=== PATIENT | female | born 1930 | race Caucasian/White ===

== ENCOUNTER 2018-12-21 05:53 | Inpatient (IN) | payer MEDICARE ==
[2018-12-20 14:08] VITALS: BMI 31.4
[2018-12-21] MEDS ORDERED: Fentanyl 100 MCG/2 ML VIAL ONE ×2 (06:08→07:46)
[2018-12-21] MEDS ORDERED: Lidocaine 1% (PF) 30 ML VIAL ONE (06:08)
[2018-12-21] MEDS ORDERED: Midazolam HCl 2 mg/2 ml Vial ONE (06:08)
[2018-12-21] MEDS ORDERED: Ropivacaine 0.2% HCl/PF 20 ML ONE (06:08)
[2018-12-21] MEDS ORDERED: Ropivacaine 0.2% 550 ML 550 ML NERVE BLCK SCH (06:26)
[2018-12-21] MEDS ORDERED: traMADol HCl 50 MG TAB PO PRN ×2 (06:26)
[2018-12-21] MEDS ORDERED: Promethazine HCl 25 MG/ML VIAL IM PRN ×2 (06:26→09:34)
[2018-12-21] MEDS ORDERED: Zolpidem Tartrate 5 MG TAB PO PRN (06:26)
[2018-12-21] MEDS ORDERED: Ondansetron PF 4 MG/2 ML Vial IVP PRN (06:26)
[2018-12-21] MEDS ORDERED: Fentanyl 100 MCG/2 ML VIAL IV PRN (06:27)
[2018-12-21] MEDS ORDERED: Sodium Chloride 0.9% 100 ML ONE (06:29)
[2018-12-21] MEDS ORDERED: Tranexamic Acid 1,000 MG/10 ML VIAL ONE (06:29)
[2018-12-21 06:39] LABS: #Eosinphils 0.1 thou/uL (0.0-0.7); #Lymphocytes 1.5 thou/uL (1.20-3.40); #Monocytes 0.5 thou/uL (0.11-0.59); #Neutrophils 3.5 thou/uL (1.40-6.50); %Basophils 0.2 % (0.0-1.0); %Eosinophils 0.9 % (0.0-10.0); %Lymphocytes 26.5 % (21.0-51.0); %Neutrophils 63.4 % (42.0-75.0); Hemoglobin 12.4 g/dL (12.0-16.0); Platelet Count 261 thou/uL (130-400); RBC Distribution Width 12.9 % (11.5-14.5); Red Blood Cell (RBC) Count 3.89 mill/uL (4.20-5.40); White Blood Cell (WBC) Count 5.6 thou/uL (4.8-10.8)
[2018-12-21 07:02] LABS: Anion Gap 14 mmol/L (10-20); BUN (Urea Nitrogen) 12 mg/dL (9.8-20.1); Calc. Creatinine Clearance 75 mL/min (70-130); Calcium 10.2 mg/dL (7.8-10.44); Carbon Dioxide 26 mmol/L (23-31); Chloride 106 mmol/L (98-107); Estimated GFR-MDRD 88; Glucose 92 mg/dL (83-110); Sodium 142 mmol/L (136-145)
--- NOTE | 2018-12-21 07:26 | RAD ---
CHEST 2 VIEWS: Date: 12/21/18 HISTORY: Preoperative evaluation. COMPARISON: 09/29/17. FINDINGS: There is cardiomegaly. Moderate size hiatal hernia. Some metal opacity overlies the right suprahilar region. No confluent pneumonia, overt edema, or pleural effusion. IMPRESSION: Minimal cardiomegaly. No pneumonia or acute edema. Moderate size hiatal hernia. Stable chest. POS: [facility]
[2018-12-21 09:25] LABS: INR-International Normal Ratio 1.1; PTT 38.5 SEC (22.9-36.1); Prothrombin Time 14.5 SEC (12.0-14.7)
[2018-12-21] MEDS ORDERED: Promethazine HCl 25 MG/ML VIAL SLOW IVP PRN (09:34)
[2018-12-21] MEDS ORDERED: PACU-Morphine 4MG/ML VIAL SLOW IVP PRN (09:34)
[2018-12-21] MEDS ORDERED: Ropivacaine 0.2% HCl/PF (40 MG/20 ML VIAL) ONE (09:36)
[2018-12-21] MEDS ORDERED: Ropivacaine 0.5% HCl/PF (150 MG/30 ML VIAL) ONE (09:36)
[2018-12-21] MEDS ORDERED: Bisacodyl 10 MG SUPP PR PRN (09:52)
[2018-12-21] MEDS ORDERED: diphenhydrAMINE 50 MG CAP PO PRN (09:52)
[2018-12-21] MEDS ORDERED: Milk Of Magnesia 30 ML UDCUP PO PRN (09:52)
[2018-12-21] MEDS ORDERED: Acetaminophen 325 MG TAB PO PRN (09:52)
[2018-12-21] MEDS ORDERED: Dexamethasone 20 MG/5 ML VIAL ONE (10:16)
[2018-12-21] MEDS ORDERED: Rocuronium Bromide 10 MG/ML (10ML VIAL) ONE (10:16)
[2018-12-21] MEDS ORDERED: Glycopyrrolate 0.2 MG/ML 5 ML SYRINGE ONE (10:16)
[2018-12-21] MEDS ORDERED: Labetalol HCl 100 MG/20 ML VIAL ONE (10:16)
[2018-12-21] MEDS ORDERED: PROPOFOL 200 MG/20 ML VIAL ONE (10:16)
[2018-12-21] MEDS ORDERED: Lidocaine 1% PF 5 ML VIAL ONE (10:16)
[2018-12-21] MEDS ORDERED: Ondansetron PF 4 MG/2 ML Vial ONE (10:16)
[2018-12-21] MEDS ORDERED: ePHEDrine 50 MG/ML VIAL ONE (10:16)
[2018-12-21] MEDS ORDERED: Famotidine 20 MG TAB PO SCH (10:30)
--- NOTE | 2018-12-21 10:34 | RAD ---
EXAM: 2 views of the right shoulder HISTORY: Shoulder pain COMPARISON: None FINDINGS: The patient is status post right shoulder arthroplasty without perihardware lucency or frac ture. Overlying skin luis manuel are seen. Atelectasis is seen in the right lung. IMPRESSION: Status post right shoulder arthroplasty without evidence of complication.
--- NOTE | 2018-12-21 13:53 | OP ---
DATE OF PROCEDURE: 12/21/2018 PREOPERATIVE DIAGNOSIS: Right irreparable rotator cuff tear, supraspinatus, infraspinatus, subscapularis, biceps tendinopathy with pseudoparalysis POSTOPERATIVE DIAGNOSIS: Right irreparable rotator cuff tear, supraspinatus, infraspinatus, subscapularis, biceps tendinopathy with pseudoparalysis PROCEDURES PERFORMED: 1. Right reverse total shoulder arthroplasty. 2. Biceps tenodesis. HEALTH PSYCHOLOGIST: Christy Jordan PA-C ANESTHESIOLOGIST: Dk Lino MD ANESTHESIA: The patient received a general endotracheal intubation and an interscalene block. ESTIMATED BLOOD LOSS: 200 mL. TOURNIQUET TIME: None. IMPLANTS: A Tornier 25 mm baseplate, a 36 x 25 mm Glenosphere, a center tray, a flex 3A stem, and a 36 x 6 mm poly, two locking and two nonlocking screws. ANTIBIOTICS: The patient received Ancef 2 g, vancomycin 1 g, TXA 1 g. COMPLICATIONS: None. HISTORY OF PRESENT ILLNESS: Ms. Peralta is a pleasant 88-year-old female, who presents with right shoulder pain. The patient has been preoperatively cleared, discussed rotator cuff arthropathy with a significant rotator cuff repairs. The patient understood risks and benefits of right reverse shoulder arthroplasty with biceps tenodesis include pain, scar, bleeding, infection, damage to vital structures, decreased range of motion and strength, nonunion fracture above or below, need for further surgeries, failure of procedure, implant, and loss of life or limb. The patient understood the risks and benefits of the procedure and elected to proceed. DESCRIPTION OF PROCEDURE: Time-out was performed designating the patient's right upper extremity as the operative site based on site, consents, and marking. After time-out procedure note, deltopectoral incision was made down through the skin, deltopectoral interval, found that the vein was stretched and partially torn, so it was cauterized, but kept throughout intact. We kept it intact in situ. We then tied off the cephalic vein. We then came down, found the conjoined tendon, came underneath the shoulder. We found that biceps went up to the groove, tried a small little wedge osteotomy, took down the tendon. We then exposed the humerus. We placed Homans in position. We cut it at type A angle, which was 135, removed the bone, broached at 20 degrees of rotation down to ensure that we were in line with the arm in retroversion. We placed a size 2, put a hard cap in, we exposed the glenoid. We then did a 360 degree release. After 360 degree release, we looked at the baseplate, which fit in the inferior aspect, matched it up. We then placed our center drill guide and we drilled. We placed our anterior and posterior screws, superior and inferior screws. We had overall good alignment of the patient's implant and good stability after completion of our anterior and posterior, and superior and inferior locking screws. We then placed our Glenosphere into position. We then moved back to the humerus. We broached down and ultimately placed a 3, there was some tightness, I took over more bone superiorly with our reamer. We then reduced. The patient had good internal and external rotation and overhead elevation. No signs of impingement superior and inferior to about 130 degrees. No inferior impingement to speak of. We washed. We had placed a #5 Ethibond around to repair and repaired the subscapularis down. We tenodesed the biceps to the remnant subscapularis as well as remnant cuff posteriorly and soft tissue with #2 Ethibond. We then washed, closed the deltopectoral fascia with #1 Vicryl. We closed the subcu running stitch with 2-0 Vicryl. We closed with subcu running with 2-0, then we did luis manuel. The patient will be admitted. The patient lives at home alone and will need postoperative care. She will likely need to be in the hospital until she can be transferred to alf. Job ID: [id number] [facility]
[2018-12-21] MEDS: Lactated Ringer's 1,000 ML IV SCH ×2 (14:00→23:17)
[2018-12-21] MEDS: CEFAZOLIN 2 GM in Premix Bag 1 BAG IVPB SCH ×2 (15:55→23:17)
[2018-12-21] MEDS ORDERED: Vancomycin HCl 1 GM in Premix Bag 1 BAG IVPB SCH (20:00)
[2018-12-21] MEDS: Losartan 25 MG TAB PO SCH (20:47)
[2018-12-21] MEDS: Famotidine 20 MG TAB PO SCH (20:48)
[2018-12-21] MEDS: Docusate 100 MG CAP PO SCH (20:48)
[2018-12-21] MEDS: Atorvastatin Calcium 20 MG TAB PO SCH (20:48)
[2018-12-22] MEDS: HYDROcodone/Acetaminophen 5/325 mg Tablet PO PRN ×4 (02:04→21:41)
[2018-12-22] MEDS: Lactated Ringer's 1,000 ML IV SCH ×2 (03:02→17:53)
[2018-12-22] MEDS: Atenolol 25 MG TAB PO SCH (08:47)
[2018-12-22] MEDS: Citalopram 10 MG TAB PO SCH (08:48)
[2018-12-22] MEDS: Losartan 25 MG TAB PO SCH ×2 (08:48→21:40)
[2018-12-22] MEDS: Loratadine 10 MG TAB PO SCH (08:49)
[2018-12-22] MEDS: Amlodipine 5 MG TAB PO SCH (08:49)
[2018-12-22] MEDS: Furosemide 20 MG TAB PO SCH (08:49)
[2018-12-22] MEDS: Docusate 100 MG CAP PO SCH ×2 (08:49→21:40)
[2018-12-22] MEDS: Famotidine 20 MG TAB PO SCH ×2 (08:49→21:40)
[2018-12-22] MEDS: Pantoprazole 40 MG GRANULES PACKET PO SCH (08:50)
[2018-12-22] MEDS: Calcium Carbonate + Vit D 250 MG TAB PO SCH (08:50)
[2018-12-22] MEDS: Potassium Chloride 10 MEQ TAB PO SCH (08:50)
[2018-12-22] MEDS ORDERED: cloNIDine 0.1 MG TAB PO PRN (17:36)
[2018-12-22] MEDS: Atorvastatin Calcium 20 MG TAB PO SCH (21:40)
[2018-12-23] MEDS: Lactated Ringer's 1,000 ML IV SCH ×2 (08:27→22:56)
[2018-12-23] MEDS: Amlodipine 5 MG TAB PO SCH (08:27)
[2018-12-23] MEDS: Atenolol 25 MG TAB PO SCH (08:28)
[2018-12-23] MEDS: Potassium Chloride 10 MEQ TAB PO SCH (08:28)
[2018-12-23] MEDS: Famotidine 20 MG TAB PO SCH ×2 (08:29→19:56)
[2018-12-23] MEDS: Furosemide 20 MG TAB PO SCH (08:29)
[2018-12-23] MEDS: Losartan 25 MG TAB PO SCH ×2 (08:29→19:56)
[2018-12-23] MEDS: Docusate 100 MG CAP PO SCH ×2 (08:30→19:56)
[2018-12-23] MEDS: Citalopram 10 MG TAB PO SCH (08:30)
[2018-12-23] MEDS: Loratadine 10 MG TAB PO SCH (08:30)
[2018-12-23] MEDS: Calcium Carbonate + Vit D 250 MG TAB PO SCH (08:30)
[2018-12-23] MEDS: Pantoprazole 40 MG GRANULES PACKET PO SCH (08:30)
[2018-12-23] MEDS: HYDROcodone/Acetaminophen 5/325 mg Tablet PO PRN (14:26)
--- NOTE | 2018-12-23 17:07 | PDOC.PN ---
- Subjective Encounter Start Date: 12/23/18 Encounter Start Time: 15:00 Subjective: pt up in bed complains of pain to her right shoulder - Objective Vital Signs & Weight: Vital Signs (12 hours) Temp Pulse Resp BP BP Pulse Ox Pulse Ox 12/23/18 16:12 98.9 F 70 20 148/83 H 96 12/23/18 15:28 65 16 12/23/18 11:02 98.3 F 65 20 152/93 H 97 12/23/18 09:41 94 L 12/23/18 08:28 66 160/90 H 12/23/18 08:27 66 12/23/18 08:26 99 12/23/18 07:57 98.3 F 66 20 160/90 H 99 Pulse Ox Pulse Ox 12/23/18 16:12 12/23/18 15:28 12/23/18 11:02 12/23/18 09:41 77 L 93 L 12/23/18 08:28 12/23/18 08:27 12/23/18 08:26 12/23/18 07:57 Weight Weight 172 lb I&O: 12/22/18 12/23/18 12/24/18 06:59 06:59 06:59 Intake Total 994 213 0917 Balance 689 208 3544 Result Diagrams: 12/21/18 06:27 12/21/18 06:27 Phys Exam - Physical Examination Neck: no nodes, no JVD, supple, full ROM Respiratory: wheezing present Cardiovascular: RRR, no significant murmur, no rub, gallop, irregular Gastrointestinal: soft, non-tender, no distention, positive bowel sounds Musculoskeletal: no edema, pulses present, edema present Dx/Plan (1) Hypertension Code(s): I10 - ESSENTIAL (PRIMARY) HYPERTENSION Status: Acute (2) SOB (shortness of breath) Code(s): R06.02 - SHORTNESS OF BREATH Status: Acute - Plan pt was on bp meds but was taken off by her pcp -: since her blood pressure has been normal. -: I believe her elevated bp is due to her pain and current situation -: Her pervious meds have been restarted, will monitor -: will start pt on some duoneb, she may need iv lasix * . Review of Systems - Review of Systems Respiratory: Shortness of Breath Cardiovascular: negative: chest pain, palpitations, orthopnea, paroxysmal nocturnal dyspnea, edema, light headedness, other Gastrointestinal: negative: Nausea, Vomiting, Abdominal Pain, Diarrhea, Constipation, Melena, Hematochezia, Other Genitourinary: negative: Dysuria, Frequency, Incontinence, Hematuria, Retention , Other - Medications/Allergies Allergies/Adverse Reactions: Allergies Allergy/AdvReac Type Severity Reaction Status Date / Time Sulfa (Sulfonamide Allergy Unknown Verified 12/20/18 14:02 Antibiotics) Medications: Current Medications Acetaminophen (Tylenol) 650 mg PO Q4H PRN PRN Reason: YADAV/T > 101.5F/Mild Pain (1-3) Hydrocodone Bitart/Acetaminophen ([place] 5/325) 1 tab PO Q4H PRN PRN Reason: Mild Pain (1-3) Last Admin: 12/23/18 14:26 Dose: 1 tab Hydrocodone Bitart/Acetaminophen ([place] 5/325) 2 tab PO Q4H PRN PRN Reason: For Moderate Pain 4-6 Last Admin: 12/22/18 13:24 Dose: 2 tab Albuterol/Ipratropium (Duoneb) 3 ml NEB NOW [facility] Stop: 12/23/18 17:30 Last Admin: 12/23/18 15:28 Dose: 3 ml Albuterol/Ipratropium (Duoneb) 3 ml NEB Q6H PRN PRN Reason: SOB &/or Wheezing Amlodipine Besylate (Norvasc) 2.5 mg PO DAILY [facility] Last Admin: 12/23/18 08:27 Dose: 2.5 mg Atenolol (Tenormin) 25 mg PO DAILY [facility] Last Admin: 12/23/18 08:28 Dose: 25 mg Atorvastatin Calcium (Lipitor) 20 mg PO HS [facility] Last Admin: 12/22/18 21:40 Dose: 20 mg Bisacodyl (Dulcolax) 10 mg [place] Q6H PRN PRN Reason: Constipation Calcium/Vitamin D (Oscal + Vit D) 250 mg PO DAILY [facility] Last Admin: 12/23/18 08:30 Dose: 250 mg Cholecalciferol (Vitamin D3) 2,000 units PO DAILY [facility] Last Admin: 12/23/18 08:29 Dose: 2,000 units Citalopram Hydrobromide (Celexa) 10 mg PO DAILY [facility] Last Admin: 12/23/18 08:30 Dose: 10 mg Clonidine (Catapres) 0.1 mg PO Q4H PRN PRN Reason: SBP Greater Than 180 Diphenhydramine HCl (Benadryl) 50 mg PO Q4H PRN PRN Reason: Itching Docusate Sodium (Colace) 100 mg PO BID [facility] Last Admin: 12/23/18 08:30 Dose: 100 mg Famotidine (Pepcid) 20 mg PO BID [facility] Last Admin: 12/23/18 08:29 Dose: 20 mg Fentanyl (Sublimaze) 50 mcg IV Q1H PRN PRN Reason: Breakthrough Pain Furosemide (Lasix) 20 mg PO DAILY [facility] Last Admin: 12/23/18 08:29 Dose: 20 mg Ropivacaine (Ropivacaine 0.2% 550 Ml) 550 mls @ 6 mls/hr NERVE BLCK INF [facility] Lactated Ringer's (Lactated Ringer's) 1,000 mls @ 65 mls/hr IV .[id number] [facility] Last Admin: 12/23/18 08:27 Dose: Not Given Loratadine (Claritin) 10 mg PO DAILY [facility] Last Admin: 12/23/18 08:30 Dose: 10 mg Losartan Potassium (Cozaar) 50 mg PO BID [facility] Last Admin: 12/23/18 08:29 Dose: 50 mg Magnesium Hydroxide (Milk Of Magnesium) 30 ml PO DAILYPRN PRN PRN Reason: Constipation Ondansetron HCl (Zofran) 4 mg IVP Q6H PRN PRN Reason: Nausea/Vomiting Pantoprazole Sodium (Protonix) 40 mg PO DAILY [facility] Last Admin: 12/23/18 08:30 Dose: 40 mg Potassium Chloride (Klor-Con 10) 10 meq PO DAILY [facility] Last Admin: 12/23/18 08:28 Dose: 10 meq Promethazine HCl (Phenergan) 12.5 mg IM Q4H PRN PRN Reason: Nausea Sodium Chloride (Flush - Normal Saline) 10 ml IVF PRN PRN PRN Reason: Saline Flush Tramadol HCl (Ultram) 100 mg PO Q6H PRN PRN Reason: Moderate Pain 4-6 Zolpidem Tartrate (Ambien) 5 mg PO HSPRN PRN PRN Reason: Insomnia Last Admin: 12/21/18 20:52 Dose: 5 mg
[2018-12-23] MEDS: Atorvastatin Calcium 20 MG TAB PO SCH (19:56)
[2018-12-24] MEDS: HYDROcodone/Acetaminophen 5/325 mg Tablet PO PRN ×3 (03:33→22:22)
[2018-12-24] MEDS: Losartan 25 MG TAB PO SCH (09:10)
[2018-12-24] MEDS: Loratadine 10 MG TAB PO SCH (09:11)
[2018-12-24] MEDS: Potassium Chloride 10 MEQ TAB PO SCH (09:11)
[2018-12-24] MEDS: Famotidine 20 MG TAB PO SCH ×2 (09:11→20:31)
[2018-12-24] MEDS: Atenolol 25 MG TAB PO SCH (09:11)
[2018-12-24] MEDS: Calcium Carbonate + Vit D 250 MG TAB PO SCH (09:11)
[2018-12-24] MEDS: Docusate 100 MG CAP PO SCH ×2 (09:11→20:31)
[2018-12-24] MEDS: Pantoprazole 40 MG GRANULES PACKET PO SCH (09:12)
[2018-12-24] MEDS: Furosemide 20 MG TAB PO SCH (09:12)
[2018-12-24] MEDS: Citalopram 10 MG TAB PO SCH (09:12)
[2018-12-24] MEDS: Amlodipine 5 MG TAB PO SCH (09:12)
[2018-12-24] MEDS: Lactated Ringer's 1,000 ML IV SCH (09:15)
--- NOTE | 2018-12-24 12:41 | PDOC.PN ---
- Subjective Encounter Start Date: 12/24/18 Encounter Start Time: 11:15 Subjective: pt up in bed feels better today - Objective Vital Signs & Weight: Vital Signs (12 hours) Temp Pulse Resp BP BP BP Pulse Ox 12/24/18 11:16 97.6 F 77 20 133/77 96 12/24/18 10:10 85 22 H 97 12/24/18 09:12 86 159/80 H 12/24/18 09:11 86 159/80 H 12/24/18 08:23 94 L 12/24/18 08:22 98.3 F 86 20 159/80 H 94 L 12/24/18 04:00 98.5 F 70 18 144/83 H 98 Weight Weight 172 lb I&O: 12/23/18 12/24/18 12/25/18 06:59 06:59 06:59 Intake Total 500 1550 250 Balance 500 1550 250 Result Diagrams: 12/21/18 06:27 12/21/18 06:27 Phys Exam - Physical Examination Neck: no nodes, no JVD, supple, full ROM mild crackles to bases Cardiovascular: RRR, no significant murmur, no rub, gallop, irregular Dx/Plan (1) Hypertension Code(s): I10 - ESSENTIAL (PRIMARY) HYPERTENSION Status: Acute (2) SOB (shortness of breath) Code(s): R06.02 - SHORTNESS OF BREATH Status: Acute - Plan will give iv lasix today -: try to wean off oxygen -: bp controlled will make CHAPO once a day * . Review of Systems - Review of Systems ENT: negative: Ear Pain, Ear Discharge, Nose Pain, Nose Discharge, Nose Congestion, Mouth Pain, Mouth Swelling, Throat Pain, Throat Swelling, Other Respiratory: negative: Cough, Dry, Shortness of Breath, Hemoptysis, SOB with Excertion, Pleuritic Pain, Sputum, Wheezing Cardiovascular: negative: chest pain, palpitations, orthopnea, paroxysmal nocturnal dyspnea, edema, light headedness, other - Medications/Allergies Allergies/Adverse Reactions: Allergies Allergy/AdvReac Type Severity Reaction Status Date / Time Sulfa (Sulfonamide Allergy Unknown Verified 12/20/18 14:02 Antibiotics) Medications: Current Medications Acetaminophen (Tylenol) 650 mg PO Q4H PRN PRN Reason: YADAV/T > 101.5F/Mild Pain (1-3) Hydrocodone Bitart/Acetaminophen ([place] 5/325) 1 tab PO Q4H PRN PRN Reason: Mild Pain (1-3) Last Admin: 12/24/18 03:33 Dose: 1 tab Hydrocodone Bitart/Acetaminophen ([place] 5/325) 2 tab PO Q4H PRN PRN Reason: For Moderate Pain 4-6 Last Admin: 12/22/18 13:24 Dose: 2 tab Albuterol/Ipratropium (Duoneb) 3 ml NEB Q6H PRN PRN Reason: SOB &/or Wheezing Last Admin: 12/24/18 10:10 Dose: 3 ml Amlodipine Besylate (Norvasc) 2.5 mg PO DAILY [facility] Last Admin: 12/24/18 09:12 Dose: 2.5 mg Atenolol (Tenormin) 25 mg PO DAILY [facility] Last Admin: 12/24/18 09:11 Dose: 25 mg Atorvastatin Calcium (Lipitor) 20 mg PO HS [facility] Last Admin: 12/23/18 19:56 Dose: 20 mg Bisacodyl (Dulcolax) 10 mg [place] Q6H PRN PRN Reason: Constipation Calcium/Vitamin D (Oscal + Vit D) 250 mg PO DAILY [facility] Last Admin: 12/24/18 09:11 Dose: 250 mg Cholecalciferol (Vitamin D3) 2,000 units PO DAILY [facility] Last Admin: 12/24/18 09:11 Dose: 2,000 units Citalopram Hydrobromide (Celexa) 10 mg PO DAILY [facility] Last Admin: 12/24/18 09:12 Dose: 10 mg Clonidine (Catapres) 0.1 mg PO Q4H PRN PRN Reason: SBP Greater Than 180 Diphenhydramine HCl (Benadryl) 50 mg PO Q4H PRN PRN Reason: Itching Docusate Sodium (Colace) 100 mg PO BID [facility] Last Admin: 12/24/18 09:11 Dose: 100 mg Famotidine (Pepcid) 20 mg PO BID [facility] Last Admin: 12/24/18 09:11 Dose: 20 mg Fentanyl (Sublimaze) 50 mcg IV Q1H PRN PRN Reason: Breakthrough Pain Furosemide (Lasix) 20 mg PO DAILY [facility] Last Admin: 12/24/18 09:12 Dose: 20 mg Furosemide (Lasix) 40 mg SLOW IVP [facility] Ropivacaine (Ropivacaine 0.2% 550 Ml) 550 mls @ 6 mls/hr NERVE BLCK INF [facility] Loratadine (Claritin) 10 mg PO DAILY [facility] Last Admin: 12/24/18 09:11 Dose: 10 mg Losartan Potassium (Cozaar) 50 mg PO DAILY [facility] Magnesium Hydroxide (Milk Of Magnesium) 30 ml PO DAILYPRN PRN PRN Reason: Constipation Ondansetron HCl (Zofran) 4 mg IVP Q6H PRN PRN Reason: Nausea/Vomiting Pantoprazole Sodium (Protonix) 40 mg PO DAILY [facility] Last Admin: 12/24/18 09:12 Dose: 40 mg Potassium Chloride (Klor-Con 10) 10 meq PO DAILY [facility] Last Admin: 12/24/18 09:11 Dose: 10 meq Promethazine HCl (Phenergan) 12.5 mg IM Q4H PRN PRN Reason: Nausea Sodium Chloride (Flush - Normal Saline) 10 ml IVF PRN PRN PRN Reason: Saline Flush Tramadol HCl (Ultram) 100 mg PO Q6H PRN PRN Reason: Moderate Pain 4-6 Zolpidem Tartrate (Ambien) 5 mg PO HSPRN PRN PRN Reason: Insomnia Last Admin: 12/21/18 20:52 Dose: 5 mg
[2018-12-24] MEDS ORDERED: Furosemide 40 MG/4 ML VIAL SLOW IVP SCH (16:00)
[2018-12-24] MEDS: Atorvastatin Calcium 20 MG TAB PO SCH (20:30)
[2018-12-25] MEDS: Furosemide 20 MG TAB PO SCH (08:27)
[2018-12-25] MEDS: Docusate 100 MG CAP PO SCH (08:27)
[2018-12-25] MEDS: Potassium Chloride 10 MEQ TAB PO SCH (08:27)
[2018-12-25] MEDS: Loratadine 10 MG TAB PO SCH (08:27)
[2018-12-25] MEDS: Citalopram 10 MG TAB PO SCH (08:28)
[2018-12-25] MEDS: Famotidine 20 MG TAB PO SCH (08:28)
[2018-12-25] MEDS: Atenolol 25 MG TAB PO SCH (08:29)
[2018-12-25] MEDS: Amlodipine 5 MG TAB PO SCH (08:30)
[2018-12-25] MEDS: Calcium Carbonate + Vit D 250 MG TAB PO SCH (08:36)
[2018-12-25] MEDS: Pantoprazole 40 MG GRANULES PACKET PO SCH (08:37)
[2018-12-25] MEDS ORDERED: Losartan 25 MG TAB PO SCH (09:00)
[2018-12-25 10:48] VITALS: BP 151/84; TEMP 98.6
--- NOTE | 2018-12-25 12:07 | PDOC.PN ---
- Subjective Encounter Start Date: 12/25/18 Encounter Start Time: 10:30 Subjective: pt up in bed no complains -: per nursing her oxygen sat dropped down to the 70's while she was -: sleeping. - Objective Vital Signs & Weight: Vital Signs (12 hours) Temp Pulse Resp BP BP BP Pulse Ox 12/25/18 10:46 98.6 F 77 16 151/84 H 92 L 12/25/18 08:30 79 134/87 12/25/18 08:29 79 134/87 12/25/18 08:25 96 12/25/18 07:31 98.0 F 80 16 134/87 96 12/25/18 03:58 98.2 F 74 16 120/83 95 Weight Weight 172 lb I&O: 12/24/18 12/25/18 12/26/18 06:59 06:59 06:59 Intake Total 1550 1850 Balance 1550 1850 Result Diagrams: 12/21/18 06:27 12/21/18 06:27 Phys Exam - Physical Examination Neck: no nodes, no JVD, supple, full ROM Respiratory: clear to auscultation bilateral Cardiovascular: RRR, no significant murmur, no rub, gallop, irregular Gastrointestinal: soft, non-tender, no distention, positive bowel sounds Musculoskeletal: no edema, pulses present, edema present Dx/Plan (1) Hypertension Code(s): I10 - ESSENTIAL (PRIMARY) HYPERTENSION Status: Acute (2) SOB (shortness of breath) Code(s): R06.02 - SHORTNESS OF BREATH Status: Acute - Plan pt did well with one dose of iv lasix will repeat it. -: she had pft's in 2012 which were normal. She tells me she follows -: up with Dr conklin. will get her recent echo. She also tells me that her sob -: has been going on for the past month. Normally she will walk for 5-10min -: and rest for another 10min. She did not tell her primary care about this. * . she should be ok for discharge to rehab. i will give her another dose of lasix iv and will increase her oral lasix dose. Tried to wean her off the oxygen and she dropped to 88%. Review of Systems - Review of Systems Respiratory: negative: Cough, Dry, Shortness of Breath, Hemoptysis, SOB with Excertion, Pleuritic Pain, Sputum, Wheezing Cardiovascular: negative: chest pain, palpitations, orthopnea, paroxysmal nocturnal dyspnea, edema, light headedness, other Gastrointestinal: negative: Nausea, Vomiting, Abdominal Pain, Diarrhea, Constipation, Melena, Hematochezia, Other - Medications/Allergies Allergies/Adverse Reactions: Allergies Allergy/AdvReac Type Severity Reaction Status Date / Time Sulfa (Sulfonamide Allergy Unknown Verified 12/20/18 14:02 Antibiotics) Medications: Current Medications Acetaminophen (Tylenol) 650 mg PO Q4H PRN PRN Reason: YADAV/T > 101.5F/Mild Pain (1-3) Hydrocodone Bitart/Acetaminophen ([place] 5/325) 1 tab PO Q4H PRN PRN Reason: Mild Pain (1-3) Last Admin: 12/24/18 03:33 Dose: 1 tab Hydrocodone Bitart/Acetaminophen ([place] 5/325) 2 tab PO Q4H PRN PRN Reason: For Moderate Pain 4-6 Last Admin: 12/24/18 22:22 Dose: 2 tab Albuterol/Ipratropium (Duoneb) 3 ml NEB Q6H PRN PRN Reason: SOB &/or Wheezing Last Admin: 12/24/18 10:10 Dose: 3 ml Amlodipine Besylate (Norvasc) 2.5 mg PO DAILY [facility] Last Admin: 12/25/18 08:30 Dose: 2.5 mg Atenolol (Tenormin) 25 mg PO DAILY [facility] Last Admin: 12/25/18 08:29 Dose: 25 mg Atorvastatin Calcium (Lipitor) 20 mg PO HS [facility] Last Admin: 12/24/18 20:30 Dose: 20 mg Bisacodyl (Dulcolax) 10 mg [place] Q6H PRN PRN Reason: Constipation Calcium/Vitamin D (Oscal + Vit D) 250 mg PO DAILY [facility] Last Admin: 12/25/18 08:36 Dose: 250 mg Cholecalciferol (Vitamin D3) 2,000 units PO DAILY [facility] Last Admin: 12/25/18 08:26 Dose: 2,000 units Citalopram Hydrobromide (Celexa) 10 mg PO DAILY [facility] Last Admin: 12/25/18 08:28 Dose: 10 mg Clonidine (Catapres) 0.1 mg PO Q4H PRN PRN Reason: SBP Greater Than 180 Diphenhydramine HCl (Benadryl) 50 mg PO Q4H PRN PRN Reason: Itching Docusate Sodium (Colace) 100 mg PO BID [facility] Last Admin: 12/25/18 08:27 Dose: 100 mg Famotidine (Pepcid) 20 mg PO BID [facility] Last Admin: 12/25/18 08:28 Dose: 20 mg Fentanyl (Sublimaze) 50 mcg IV Q1H PRN PRN Reason: Breakthrough Pain Furosemide (Lasix) 20 mg PO DAILY [facility] Last Admin: 12/25/18 08:27 Dose: 20 mg Furosemide (Lasix) 40 mg SLOW IVP NOW [facility] Stop: 12/25/18 14:30 Ropivacaine (Ropivacaine 0.2% 550 Ml) 550 mls @ 6 mls/hr NERVE BLCK INF [facility] Loratadine (Claritin) 10 mg PO DAILY [facility] Last Admin: 12/25/18 08:27 Dose: 10 mg Losartan Potassium (Cozaar) 50 mg PO DAILY [facility] Last Admin: 12/25/18 08:29 Dose: 50 mg Magnesium Hydroxide (Milk Of Magnesium) 30 ml PO DAILYPRN PRN PRN Reason: Constipation Ondansetron HCl (Zofran) 4 mg IVP Q6H PRN PRN Reason: Nausea/Vomiting Pantoprazole Sodium (Protonix) 40 mg PO DAILY [facility] Last Admin: 12/25/18 08:37 Dose: 40 mg Potassium Chloride (Klor-Con 10) 10 meq PO DAILY [facility] Last Admin: 12/25/18 08:27 Dose: 10 meq Promethazine HCl (Phenergan) 12.5 mg IM Q4H PRN PRN Reason: Nausea Sodium Chloride (Flush - Normal Saline) 10 ml IVF PRN PRN PRN Reason: Saline Flush Tramadol HCl (Ultram) 100 mg PO Q6H PRN PRN Reason: Moderate Pain 4-6 Zolpidem Tartrate (Ambien) 5 mg PO HSPRN PRN PRN Reason: Insomnia Last Admin: 12/21/18 20:52 Dose: 5 mg
[2018-12-25] MEDS ORDERED: Furosemide 40 MG/4 ML VIAL SLOW IVP SCH (12:30)
== END 2018-12-25 14:35 | DRG 483 ==
LOC: SURG A 05:53 → SJJU 12:29
PROVIDERS: ADMIT Orthopaedic Surgery; ATTEND Orthopaedic Surgery
PROC: 0RRJ00Z Replacement of Right Shoulder Joint with Reverse Ball and Socket Synthetic Substitute, Open Approach (ICD-10-PCS; principal; 2018-12-21)
DX: M75.101 Unspecified rotator cuff tear or rupture of right shoulder, not specified as traumatic (principal); I10 Essential (primary) hypertension; Z96.652 Presence of left artificial knee joint; Z88.2 Allergy status to sulfonamides; Z90.710 Acquired absence of both cervix and uterus
CPT/HCPCS: 71046; 80048; 85025; 85610; 85730; 93005; 93010; 94640; A4306; J0690; J1940; J2001; J2250; J2795; J3010; J3370; J3490; J7620